=== PATIENT | female | born 1965 | race Caucasian/White ===

== ENCOUNTER 2022-05-16 10:28 | Day surgery (SDC) | payer BC ==
[~2022-05-16] VITALS: Ht 165.1 cm; Wt 124.6 kg
[~2022-05-16 10:28] MED LIST: NO HOME MEDICATIONS
[2022-05-16 12:31] VITALS: BP 126/86; PULSE 81; TEMP 97.1
[2022-05-16] MEDS ORDERED: MOUNJARO7.5 MG/0.5 SQ (12:40)
[2022-05-16] MEDS ORDERED: VYVANSE70 MG PO (12:41)
[2022-05-16] MEDS ORDERED: [UNRECOGNIZED DRUG - OTHER] PO (12:41)
[2022-05-16] MEDS ORDERED: SINGULAIR 110 MG/TAB PO (12:42)
[2022-05-16] MEDS ORDERED: VITAMIN D31000 I1 PO (12:42)
[2022-05-16] MEDS ORDERED: ZYRTEC 10MG10 MG PO (12:43)
[2022-05-16] MEDS ORDERED: ASPIRIN 81M81 MG/TA2 PO (12:43)
[2022-05-16] MEDS ORDERED: NIACIN 64 MG-501 TA1 PO (12:44)
[2022-05-16] MEDS ORDERED: FLAXSEED OIL1000 MG PO (12:44)
[2022-05-16] MEDS ORDERED: MULTI VITAMINS1 TAB PO (12:45)
[2022-05-16 13:08] VITALS: BP 130/71; PULSE 76; TEMP 97.1
[2022-05-16 13:23] VITALS: BP 127/78; PULSE 76
[2022-05-16 13:38] VITALS: BP 136/70; PULSE 70
[2022-05-16 13:53] VITALS: BP 137/59; PULSE 78
--- NOTE | 2022-05-16 14:00 | NUR ---
1308 RETURNS TO ROOM 4 PER CART. AWAKE, ALERT. AMBULATES TO RECLINER WITH STANDBY ASSIST. RESP UNLABORED. DENIES NAUSEA ABD PAIN OR DYSPHAGIA. VITAL SIGNS OBTAINED. CALL LIGHT AT SIDE. DAUGHTER IN ROOM. 1322 DR. AIKEN HERE TO VISIT WITH PATIENT. 1325 DISCHARGE INSTRUCTIONS REVIEWED. PATIENT VERBALIZES UNDERSTANDING. COPY PROVIDED IN DISCHARGE FOLDER 1340 TOL[address] PO JUICE AND MUFFIN WITHOUT NAUSEA. SWALLOWS WITHOUT DIFFICULTY. 1355 DRESSES SELF
== END 2022-05-16 14:00 | disposition home or self-care (01) ==
LOC: SDCO 10:28
DX: K21.00 Gastro-esophageal reflux disease with esophagitis, without bleeding (principal); K22.89 Other specified disease of esophagus; K44.9 Diaphragmatic hernia without obstruction or gangrene; R93.3 Abnormal findings on diagnostic imaging of other parts of digestive tract
CPT/HCPCS: J2704; J7120